=== PATIENT | male | born 1980 | race Caucasian/White ===

== ENCOUNTER → 2017-06-16 | Outpatient (CLI) | payer OTHER | LOC: FIMAGING 18:32 | PROVIDERS: ATTEND Internal Medicine | DX: R05 Cough (principal) ==

== ENCOUNTER → 2017-07-11 | Outpatient (CLI) | payer OTHER | LOC: FIMAGING 07:07 | PROVIDERS: ATTEND Internal Medicine | DX: K76.0 Fatty (change of) liver, not elsewhere classified (principal) ==

== ENCOUNTER → 2017-09-09 | Outpatient (CLI) | payer OTHER | LOC: BMCIMAGING 12:06 | PROVIDERS: ATTEND Orthopaedic Surgery Hand Surgery | DX: S52.041D Displaced fracture of coronoid process of right ulna, subsequent encounter for closed fracture with routine healing (principal) ==

== ENCOUNTER → 2018-04-07 | Outpatient (CLI) | payer OTHER | LOC: BMCIMAGING 15:02 | PROVIDERS: ATTEND Orthopaedic Surgery Hand Surgery | DX: M25.521 Pain in right elbow (principal); S52.044D Nondisplaced fracture of coronoid process of right ulna, subsequent encounter for closed fracture with routine healing ==

== ENCOUNTER 2018-08-17 19:52 | Emergency (ER) | payer OTHER ==
[2018-08-17] MEDS ORDERED: NS 1,000 ML IV ONE (20:44)
[2018-08-17 20:54] LABS: PLATELET COUNT 233 10^3/uL (150-400)
[2018-08-17 21:06] LABS: PROTIME(PATIENT) 12.8 SEC (12.0-15.0)
--- NOTE | 2018-08-17 21:24 | EDPHY ---
H & P Time Seen by Provider: 08/17/18 20:08 HPI/ROS: Chief complaint. Vision loss, arm and leg numbness HPI. Patient is a 37-year-old male who 3 hr ago developed what he thought was visual a migraine. He has these visual migraines 1-2 times per year and typically involve both eyes. He had decreased vision to the right eye. He then had decreased feeling to the right arm and tingling right-sided face as well as possibly some tingling to both sides of his feet. However he was bike riding earlier today and thinks he may have gotten is feet 2 cold. His vision has now returned to normal. He has a slight headache. The areas of tingling and altered sensation have not had a problem with weakness. He has had good movement. 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 He had surgery. 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 He has not been sick including fever cough. No abdominal pain vomiting or diarrhea. ROS 10 systems were reviewed and negative with the exception of the elements mentioned in the history of present illness Past Medical/Surgical History: Seizures, aneurysm, subarachnoid hemorrhage, surgery Social History: Single, nonsmoker, no alcohol Smoking Status: Former smoker Physical Exam: General Appearance: Alert well-developed male mild distress vital signs are stable Eyes: Pupils equal and round no pallor or injection. ENT, Mouth: Mucous membranes are moist. Respiratory: There are no retractions, lungs are clear to auscultation. Cardiovascular: Regular rate and rhythm. Gastrointestinal: Abdomen is soft and nontender, no masses, bowel sounds normal. Neurological: Awake and alert, sensory and motor exams grossly normal. Speech is normal. Cranial nerves are normal. There is some decreased sensation over his right craniotomy surgical scar but cheeks and chin have normal sensation. There is no pronator drift. [id number]-zyme and rmsb-eg-unoi are intact bilaterally Skin: Warm and dry, no rashes. Musculoskeletal: Neck is supple nontender. Extremities symmetrical, full range of motion. Psychiatric: Patient is oriented X 3, there is no agitation. Constitutional: Initial Vital Signs Temperature (C) 36.9 C 08/17/18 19:54 Heart Rate 82 08/17/18 19:54 Respiratory Rate 16 08/17/18 19:54 Blood Pressure 141/85 H 08/17/18 19:54 O2 Sat (%) 97 08/17/18 19:54 O2 Delivery Mode Room Air Allergies/Adverse Reactions: Iodinated Contrast- Oral and IV Dye [IV Dye, Iodine Containing Contrast ] Allergy (Unknown, Verified 08/17/18 19:58) Home Medications: Medication Instructions Recorded methylPREDNISolone [Medrol Dose 4 mg PO DAILY #1 packet 02/08/15 [facility]] Medical Decision Making - Diagnostics Imaging Results: Imaging Impressions Head CT 08/17/18 20:44 Impression: 1. Negative for hemorrhage. 2. 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 3. Chronic sinusitis. Results called and discussed with Paras Connolly M.D., on August 17, 2018 at [address]121. Non[address] head CT shows encephalomalacia right temporal lobe. No evidence of intracranial bleeding. No change from 2012. Reviewed by me and discussed with Dr. Navarro ED Course/Re-evaluation: Re-evaluation 9:20 p.m. Patient's symptoms are resolving I consulted discussed the case with Dr. Martinez for [facility]. He feels this would be consistent with visual migraine as the symptoms are resolving. However if they remain or remain focally he recommends brain MRI without contrast Re-evaluation 10:00 p.m. Patient feels his symptoms have resolved. He is neurologically intact at this point. He and I discussed imaging and lab results. We discussed treatment plan including criteria for return and I have asked him to follow up with Dr. Pedro tomorrow. He is offered MRI tonight however he feels his symptoms have resolved. He feels comfortable going home. Differential Diagnosis: Visual migraine, CVA, subarachnoid hemorrhage - Data Points Laboratory Results: Laboratory Results 08/17/18 20:20 08/17/18 20:20 08/17/18 08/17/18 08/17/18 20:20 20:20 20:20 WBC 7.37 10^3/uL 10^3/uL (3.80-9.50) RBC 5.55 10^6/uL 10^6/uL (4.40-6.38) Hgb 16.6 g/dL g/dL (13.7-17.5) Hct 49.4 % % (40.0-51.0) MCV 89.0 fL fL (81.5-99.8) MCH 29.9 pg pg (27.9-34.1) MCHC 33.6 g/dL g/dL (32.4-36.7) RDW 12.9 % % (11.5-15.2) Plt Count 233 10^3/uL 10^3/uL (150-400) MPV 10.8 fL fL (8.7-11.7) Neut % (Auto) 58.9 % % (39.3-74.2) Lymph % (Auto) 30.3 % % (15.0-45.0) [place] % (Auto) 7.9 % % (4.5-13.0) Eos % (Auto) 1.9 % % (0.6-7.6) Baso % (Auto) 0.7 % % (0.3-1.7) Nucleat RBC Rel Count 0.0 % % (0.0-0.2) Absolute Neuts (auto) 4.35 10^3/uL 10^3/uL (1.70-6.50) Absolute Lymphs (auto) 2.23 10^3/uL 10^3/uL (1.00-3.00) Absolute Monos (auto) 0.58 10^3/uL 10^3/uL (0.30-0.80) Absolute Eos (auto) 0.14 10^3/uL 10^3/uL (0.03-0.40) Absolute Basos (auto) 0.05 10^3/uL 10^3/uL (0.02-0.10) Absolute Nucleated RBC 0.00 10^3/uL 10^3/uL (0-0.01) Immature Gran % 0.3 % % (0.0-1.1) Immature Gran # 0.02 10^3/uL 10^3/uL (0.00-0.10) PT 12.8 SEC SEC (12.0-15.0) INR 1.00 (0.83-1.16) Sodium 137 mEq/L mEq/L (135-145) Potassium 4.0 mEq/L mEq/L (3.5-5.2) Chloride 102 mEq/L mEq/L (97-110) Carbon Dioxide 25 mEq/l mEq/l (22-31) Anion Gap 10 mEq/L mEq/L (6-14) BUN 7 mg/dL mg/dL (7-23) Creatinine 0.8 mg/dL mg/dL (0.7-1.3) Estimated GFR > 60 Glucose 113 mg/dL H mg/dL (70-100) Calcium 9.4 mg/dL mg/dL (8.5-10.4) Medications Given: Discontinued Medications Sodium Chloride (Ns) 1,000 mls @ 0 mls/hr IV ONCE ONE; Wide Open PRN Reason: Protocol Stop: 08/17/18 20:45 Last Admin: 08/17/18 20:50 Dose: 1,000 mls Departure - Departure Disposition: Home, Routine, Self-Care Clinical Impression: Migraine with visual aura Condition: Good Instructions: Migraine Headache (ED) Additional Instructions: Continue regular medications Return for any further symptoms tonight Follow-up with Dr. Banerjee tomorrow without fail Referrals: Carlyle Case MD [Primary Care Provider] - As per Instructions Dawson Banerjee MD [Medical Doctor] - 1 day without fail
[2018-08-17 22:19] VITALS: BP 132/74
== END 2018-08-17 22:19 | disposition home or self-care (01) ==
DX: G43.119 Migraine with aura, intractable, without status migrainosus (principal); G93.89 Other specified disorders of brain; J32.9 Chronic sinusitis, unspecified; E86.9 Volume depletion, unspecified; Z87.891 Personal history of nicotine dependence

== ENCOUNTER → 2018-08-31 | Outpatient (CLI) | payer OTHER | LOC: FIMAGING 18:47 | PROVIDERS: ATTEND Psychiatry & Neurology Neurology | DX: G40.909 Epilepsy, unspecified, not intractable, without status epilepticus (principal); G93.89 Other specified disorders of brain | CPT/HCPCS: 70551-PN ==